=== PATIENT | female | born 1990 | race African-American/Black ===

== ENCOUNTER 2018-10-15 18:44 | Inpatient (IN) ==
[2018-10-15 21:24] LABS: Basophils % 0.2 % (0.0-0.8); Eosinophils # 0.2 10*3/uL (0.0-0.87); Eosinophils % 1.3 % (0.00-10.9); Hematocrit 37.7 VOL% (35.7-47.0); Hemoglobin 12.5 GM/DL (12.0-16.0); Immature Granulocytes % 0.3 %; Immature Granulocytes Absolute 0.04 #; Lymphocytes # 2.2 10*3/uL (1.4-4.0); Lymphocytes % 17.2 % (21.3-54.2); Mean Corpuscular HGB Conc 33.2 GM/DL (32-36); Mean Corpuscular Hemoglobin 29 PG (27-34); Mean Corpuscular Volume 87.9 FL (87-102); Mean Platelet Volume 9.5 FL (9.6-12.0); Monocytes # 0.7 10*3/uL (0.11-0.8); Monocytes % 5.9 % (1.7-12.7); Neutrophils # 9.5 10*3/uL (1.4-7.4); Neutrophils % 75.1 % (38.7-73.9); Platelet Count 347 T/CUMM (130-400); Red Blood Count 4.29 MC/CUMM (3.8-5.5); White Blood Count 12.6 T/CUMM (4-12)
[2018-10-15 21:38] LABS: Apearance,Urine CLEAR (Clear); Bilirubin,Urine Negative (Negative); Blood, Urine Negative (Negative); Glucose,Urine (UA) Negative (Negative); Hyaline Casts,Urine 1 /LPF (0-3); Ketones,Urine Negative (Negative); Mucus,Urine Occasional /LPF (Occasional); Nitrite,Urine Negative (Negative); Protein,Urine Negative; RBC,Urine 2 /HPF (0-4); Squamous Epithelial Cell,Urine Occasional /HPF (0-10); Urine Color Yellow (Yellow); Urine Specific Gravity 1.024 (1.001-1.035); Urine Urobilinogen < 2.0 EU/DL (0.2-1.0); WBC,Urine 1 /HPF (0-6)
[2018-10-15 21:46] LABS: Alanine Aminotransferase 22 U/L (13-56); Albumin 3.8 G/DL (3.4-5.0); Alkaline Phosphatase 81 U/L (45-117); Aspartate Amino Transferase 15 U/L (0-37); Bilirubin,Total < 0.39 MG/DL (0.2-1.0); Blood Urea Nitrogen 10 MG/DL (7-18); Calcium 8.9 MG/DL (8.5-10.1); Glucose 100 MG/DL (74-106); Osmolality,Calculated 273.7 MOS/KG (273-304); Potassium 4.3 MMOL/L (3.5-5.1); Sodium 138 MMOL/L (136-145); Total Protein 8.5 G/DL (6.4-8.3)
[2018-10-15] MEDS ORDERED: CEFEPIME 1,000 MG in SODIUM CHLORIDE 0.9% 100 ML IV STA (23:59)
[2018-10-16] MEDS: DEXTROSE 5% LACTATED RINGERS 1,000 ML IV SCH ×4 (00:30→22:15)
[2018-10-16] MEDS: HYDROmorphone 2 MG/1 ML VIAL IV PRN ×4 (01:30→18:25)
[2018-10-16] MEDS ORDERED: BUPIVACAINE MPF 0.25% 30 ML VIAL ONE (08:37)
[2018-10-16] MEDS ORDERED: LIDOCAINE 1%/EPI INJ 20 ML VIAL ONE (08:37)
[2018-10-16] MEDS ORDERED: TISSUE ADHESIVE 1 EACH APPLICATOR TOP ONE (08:38)
[2018-10-16] MEDS ORDERED: BUPIVACAINE 0.5% /EPI 10 ML VIAL ONE (08:45)
[2018-10-16] MEDS ORDERED: INFLUENZA VIRUS VACCINE 0.5 ML SYRINGE IM ONE (09:00)
[2018-10-16] MEDS ORDERED: CIPROFLOXACIN 400 MG/200 ML PREMIX IV ONE (10:27)
[2018-10-16] MEDS ORDERED: PROPOFOL 200 MG/20 ML VIAL IV ONE (11:23)
[2018-10-16] MEDS ORDERED: SEVOFLURANE 1 UNIT/15 MINUTE INH ONE (11:23)
[2018-10-16] MEDS ORDERED: ONDANSETRON 4 MG/2 ML VIAL ONE ×2 (11:24→11:31)
[2018-10-16] MEDS ORDERED: MIDAZOLAM 2 MG/2 ML VIAL ONE (11:24)
[2018-10-16] MEDS ORDERED: ACETAMINOPHEN 1,000 MG/100 ML VIAL IV ONE (11:24)
[2018-10-16] MEDS ORDERED: fentaNYL 100 MCG/2 ML VIAL ONE (11:24)
[2018-10-16] MEDS ORDERED: GLYCOPYRROLATE 0.4 MG/2 ML VIAL ONE (11:24)
[2018-10-16] MEDS ORDERED: SUCCINYLCHOLINE 200 MG/10 ML VIAL ONE (11:25)
[2018-10-16] MEDS ORDERED: NEOSTIGMINE 10 MG/10 ML VIAL ONE (11:25)
[2018-10-16] MEDS ORDERED: ROCURONIUM 100 MG/10 ML VIAL IV ONE (11:25)
[2018-10-16] MEDS ORDERED: HYDROmorphone 2 MG/1 ML VIAL ONE (11:31)
[2018-10-16] MEDS ORDERED: ONDANSETRON 4 MG/2 ML VIAL IV PRN (11:35)
[2018-10-16] MEDS ORDERED: HYDROmorphone 2 MG/1 ML VIAL IV PRN (11:35)
[2018-10-16] MEDS: PANTOPRAZOLE 40 MG VIAL IV SCH (13:04)
[2018-10-16] MEDS: CEFEPIME 2,000 MG in SYRINGE 1 EACH IV SCH ×2 (13:05→20:59)
[2018-10-16] MEDS: ONDANSETRON 4 MG/2 ML VIAL IV PRN (20:56)
[2018-10-17] MEDS: DEXTROSE 5% LACTATED RINGERS 1,000 ML IV SCH ×2 (00:18→09:15)
[2018-10-17] MEDS: CEFEPIME 2,000 MG in SYRINGE 1 EACH IV SCH (06:10)
[2018-10-17] MEDS: ONDANSETRON 4 MG/2 ML VIAL IV PRN (06:14)
[2018-10-17] MEDS: PANTOPRAZOLE 40 MG VIAL IV SCH (09:16)
[2018-10-17 12:34] VITALS: BP 130/78
== END 2018-10-17 13:25 | disposition home or self-care (01) | DRG 419 ==
LOC: N.ED 18:44 → N.EDINP 23:55 → N.3E 10-16 00:40
PROVIDERS: ADMIT Surgery; ATTEND Surgery
PROC: LAPCHOL (2018-10-16 02:55)